=== PATIENT | female | born 1990 | race African-American/Black ===

== ENCOUNTER 2017-11-16 16:47 | Emergency (ER) | payer OTHER ==
[~2017-11-16] VITALS: Ht 162.6 cm; Wt 68.0 kg
[2017-11-16 17:34] VITALS: BP 130/76
[2017-11-16] MEDS ORDERED: NAPR-695 PO (18:37)
--- NOTE | 2017-11-16 18:38 | PHYS DOC ---
Past History Past Medical History: No Pertinent History Past Surgical History: Tonsillectomy, Other Alcohol Use: Occasionally Drug Use: None Adult General Chief Complaint Chief Complaint: FEVER HPI HPI Patient is a 27 yo female who presents with complaints of cough and fever and chills and body aches that started 2 days ago. The last measured elevated temperature was 100.7. No vomiting, no diarrhea, no dysuria, no rashes or lesions. Daughter is currently having a URI. Patient does not have any significant past medical history. Review of Systems Review of Systems Constitutional: Yes to fever and chills [] Eyes: Denies discharge HENT: Denies nasal congestion or sore throat [] Respiratory: Yes to cough nonproductive and mild shortness of breath[] Cardiovascular: No pain[] GI: Denies abdominal pain, nausea, vomiting, bloody stools or diarrhea [] : Denies dysuria or hematuria [] Musculoskeletal: Diffuse body aches Integument: Denies rash or skin lesions [] Neurologic: Denies headache, focal weakness or sensory changes [] All other systems were reviewed and found to be within normal limits, except as documented in this note. Allergies Allergies Allergies Coded Allergies Type Severity Reaction Last Updated Verified cefaclor Allergy Unknown 11/16/17 Yes Physical Exam Physical Exam Constitutional: Well developed, well nourished, mild distress, non-toxic appearance. [] HENT: Normocephalic, atraumatic, oropharynx moist, no oral exudates, nose normal. [] Eyes: EOMI, conjunctiva normal, no discharge. [] Neck: Normal range of motion, no tenderness, supple, no stridor. No meningeal signs Cardiovascular:Heart rate regular rhythm, no murmur, equal pulses, normal perfusion Lungs & Thorax: Bilateral breath sounds clear to auscultation, no tachypnea Abdomen: Bowel sounds normal, soft, no tenderness, Skin: Warm, dry, no erythema, no rash. [] Back: Diffuse tenderness muscular, no midline tenderness or step-offs, no CVA tenderness. [] Extremities: Diffuse tenderness, no cyanosis, no clubbing, ROM intact, no edema. No signs of DVT Neurologic: Alert and oriented X 3, normal motor function,, no focal deficits noted. [] Psychologic: Affect normal, judgement normal, mood normal. [] Current Patient Data Vital Signs Vital Signs Date Time Temp Pulse Resp B/P (MAP) Pulse Ox O2 Delivery O2 Flow Rate FiO2 11/16/17 17:34 100.7 92 16 98 Room Air EKG EKG [] Radiology/Procedures Radiology/Procedures CXR wnl[] Course & Med Decision Making Course & Med Decision Making Pertinent Labs and Imaging studies reviewed. (See chart for details) [] Dragon Disclaimer Dragon Disclaimer This electronic medical record was generated, in whole or in part, using a voice recognition dictation system. Departure Departure: Impression: Primary Impression: Fever and chills Additional Impressions: Myalgia Viral syndrome Disposition: HOME, SELF-CARE Condition: STABLE Referrals: PCP,NO (PCP) Please follow-up with your doctor or one of the clinics in the list provided to you for recheck and reevaluation in 3-5 days. If your symptoms worsen or new concerning symptoms develop please see your doctor sooner or return to the ED immediately Patient Instructions: Fever, Adult, Myalgia, Adult, Viral Syndrome Scripts Naproxen (NAPROXEN) 375 Mg Tablet 1 TAB PO BID for 5 Days, #10 TAB 5 Refills Prov: Bishnu RANGEL MD 11/16/17 Problem Qualifiers Bishnu RANGEL MD Nov 16, 2017 18:38
--- NOTE | 2017-11-17 08:25 | RAD ---
Chest, 2 views, 11/16/2017: History: Cough and congestion The heart size and pulmonary vascularity are normal. No pulmonary infiltrates are seen. There is no evidence of pleural fluid. IMPRESSION: No acute cardiopulmonary abnormality is detected.
== END 2017-11-16 18:54 | disposition home or self-care (01) ==
LOC: ER 16:47
DX: M79.1 Myalgia (principal); B34.9 Viral infection, unspecified; Z88.1 Allergy status to other antibiotic agents
CPT/HCPCS: 71020; 99284